=== PATIENT | male | born 1985 | race Native Hawaiian/Other Pacific Islander ===

== ENCOUNTER 2022-06-05 14:51 | Outpatient (CLI) | payer BC ==
[2022-06-05 15:19] LABS: POTASSIUM 4.3 mmol/L (3.6-5.2)
== END 2022-06-05 21:27 | disposition home or self-care (01) ==
LOC: LABW 14:51
PROVIDERS: ATTEND Nurse Practitioner Family
DX: R94.31 Abnormal electrocardiogram [ECG] [EKG] (principal); E83.39 Other disorders of phosphorus metabolism
CPT/HCPCS: 36415; 80053; 82306; 82553; 83970; 84100; 84484; 93005; 93225

== ENCOUNTER 2022-06-11 10:54 | Outpatient (CLI) | payer BC | END 2022-06-11 19:22 | disposition home or self-care (01) | LOC: RESP 10:54 | PROVIDERS: ATTEND Nurse Practitioner Family | DX: R94.31 Abnormal electrocardiogram [ECG] [EKG] (principal) ==

== ENCOUNTER 2022-06-16 08:57 | Outpatient (CLI) | payer BC | END 2022-06-16 18:55 | disposition home or self-care (01) | LOC: RESP 08:57 | PROVIDERS: ATTEND Nurse Practitioner Family | DX: R94.31 Abnormal electrocardiogram [ECG] [EKG] (principal) ==